=== PATIENT | male | born 1960 | race Caucasian/White ===

== ENCOUNTER 2018-10-22 08:41 | Emergency (ER) | payer MEDICAID ==
[~2018-10-22] VITALS: Ht 177.8 cm; Wt 79.4 kg
[2018-10-22 10:36] VITALS: BP 149/100
== END 2018-10-22 10:36 | disposition home or self-care (01) ==
LOC: ER 08:41
DX: M72.2 Plantar fascial fibromatosis (principal); I10 Essential (primary) hypertension; F12.10 Cannabis abuse, uncomplicated
CPT/HCPCS: 73630